=== PATIENT | male | born 1990 | race Two or more races ===

== ENCOUNTER 2023-03-19 13:59 | Outpatient (REF) | payer MEDICAID, SELFPAY ==
[2023-03-19 15:50] LABS: Hematocrit 42.9 % (42.0-52.0); Hemoglobin 13.9 g/dl (14.0-18.0); Mean Corpuscular HGB Conc 32.4 g/dl (31.0-36.0); Mean Corpuscular Hemoglobin 26.9 pg (27.0-33.0); Mean Platelet Volume 9.1 fL (9.4-12.4); Platelet Count 273 X10*3/uL (160-400); Red Blood Count 5.17 X10*6/uL (4.60-5.80); Red Cell Distribution Width 12.4 % (11.0-16.0); White Blood Count 4.3 X10*3/uL (4.8-10.8)
[2023-03-19 16:06] LABS: Alanine Aminotransferase 19 U/L (0-40); Albumin Level 4.3 g/dL (3.5-5.0); Alkaline Phosphatase 64 U/L (39-117); Anion Gap 10 (12-20); Aspartate Amino Transferase 17 U/L (5-37); Bilirubin Total 0.7 mg/dL (0.0-1.0); Blood Urea Nitrogen 11 mg/dL (9-16); C Reactive Protein < 0.10 mg/dL (< or = 0.50); Calcium 9.7 mg/dL (8.4-10.2); Carbon Dioxide 26 mmol/L (22-29); Chloride 110 mmol/L (96-108); Estimated Glomerular Filt Rate > 60; Glucose Random 89 mg/dL (60-115); Iron 74 mcg/dL (45-160); Percent Iron Saturation 25 % (15-50); Potassium 4.1 mmol/L (3.3-5.1); Sodium 142 mmol/L (135-145); Total Iron Binding Capacity 295 mcg/dL (228-428); Unsaturated Iron Binding 221 ug/dL
[2023-03-19 16:28] LABS: Ferritin 51 ng/mL (20-250); Vitamin B12 298 pg/mL (200-900)
[2023-03-20 18:27] LABS: Transglutaminase IgA <1.0 U/mL
== END 2023-03-19 14:00 | disposition home or self-care (01) ==
LOC: HO.LAB 13:59
PROVIDERS: PCP Physician Assistant; Visit Provider Internal Medicine
DX: K21.9 Gastro-esophageal reflux disease without esophagitis (principal); R19.4 Change in bowel habit; R10.13 Epigastric pain; R14.0 Abdominal distension (gaseous)
CPT/HCPCS: 36415; 80053; 82607; 82728; 82746; 83520; 83540; 85027; 86140; 86364; 99202

== ENCOUNTER 2023-03-25 11:23 | Outpatient (REF) | payer MEDICAID, SELFPAY ==
[2023-03-31 18:09] LABS: Calprotectin, Fecal 38 mcg/g
== END 2023-03-25 11:24 | disposition home or self-care (01) ==
LOC: HO.LNP 11:23
PROVIDERS: Visit Provider Internal Medicine
DX: R19.4 Change in bowel habit (principal)
CPT/HCPCS: 83993

== ENCOUNTER 2023-04-23 09:04 | Outpatient (AMB) | payer MEDICAID, SELFPAY ==
--- NOTE | 2023-04-23 09:10 | MHC.OFFVIS ---
Intake Vital Signs 04/23/23 09:11 Height 5 ft 7 in Weight 169 lb 12.095 oz BMI 26.6 BP 128/81 Blood Pressure Location Lt brachial Position Sitting Pulse 80 Intake Visit Reasons: 5 week follow up Intake Note: Saba presents in the office as a 5 week follow up. CC: He states that he is taking the medications and states that he is still having constipation. The only medication that will help if the Xifaxin. He states after eating he gets bloated and feels like he has a belly. He states that he has SIBO. He wants to know a good diet for taking the Xifaxan. Allergies Milk Containing Products (Dairy) Allergy (Mild, Verified 04/23/23 09:11) Unknown fiber pills Allergy (Mild, Uncoded 04/23/23 09:11) Unknown HPI HPI Comments History of Present Illness Details 32 y.o M with PMH of thyroid ca s/p thyroidectomy (Dr Coats) who is here for follow up 03/19/23: - Reports significant bloating and constipation shortly after consuming any dairy. Also describes numbing sensation in the feet with this. Does lactaid [id number] at the time of meals, but does not notice improvement in sx. - Also reports heartburn with certain vegetables lisa onions, tomatoes, garlic etc. Most of the times doesnt respond to esomeprazole. Has been seen by [facility] in the past and has undergone EGD/colonoscopy in 2020 which was normal based on path (procedure report not available). He also reports being treated for SIBO x 2 without significant improvement. 04/23/23: Reports postprandial bloating with discomfort. Also reports significant constipation that is only relieved with Mag supplements. The bloating gets better after having a BM. Concerned about recurrence of SIBO. Per his report was first diagnosed in [place] 3 years ago and then again a year ago at [facility] [place]. Both times had relief of sx with Rifaximin for a few months. [facility] History History of esophagogastroduodenoscopy (EGD) Hx of colonoscopy Family History Maternal Aunt Breast cancer Social History Alcohol intake: never Patient Tobacco Use Status: Former Tobacco user Review of Systems Const All systems reviewed & are unremarkable except as noted in HPI and below Physical Exam Vital Signs: Last Vital Signs Pulse 80 04/23/23 09:11 BP 128/81 04/23/23 09:11 BMI result Body Mass Index 26.6 Gen appear: NAD HEENT: nonicteric, no cervical lymphadenopathy Chest: CTA CVS: Regular S1/S2 Abd: soft, nontender, nondistended, bowel sounds + Ext: no peripheral edema Neuro: A/Ox3, noted to move all extremities spontaneously Psych: interacting appropriately Assessment & Plan Assessment & Plan (1) Change in bowel habit: Code(s): R19.4 - Change in bowel habit (2) Epigastric pain: Code(s): R10.13 - Epigastric pain (3) Bloating: Code(s): R14.0 - Abdominal distension (gaseous) (4) Irritable bowel syndrome with constipation: Code(s): K58.1 - Irritable bowel syndrome with constipation Plan Results from labs reviewed extensively with the pt and negative for inflammation, malabsorption, celiac, mast cell disorder. Sx most consistent with IBS- constipation predominant. 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 With shared decision making, pt willing to try Amitiza, will start with low dose of 8 mcg once daily and increase to 8mcg BID in 4 weeks depending on response. If minimal improvement with this as well, can repeat SIBO breath test. Pt knows to call or msg on portal in 4 weeks to update us. Follow up in 8 weeks. Medications: New lubiprostone (Amitiza) 8 mcg PO DAILY 28 caps 0RF 4 weeks Coding Level of Care Code Est Pt Level 4 (49497) Diagnoses Change in bowel habit R19.4 Epigastric pain R10.13 Bloating R14.0 Irritable bowel syndrome with constipation K58.1
[2023-04-23 09:11] VITALS: BP 128/81; PULSE 80; BMI 26.6
== END 2023-04-23 09:46 | disposition home or self-care (01) ==
PROVIDERS: PCP Physician Assistant; Visit Provider Internal Medicine
DX: R19.4 Change in bowel habit (principal); R10.13 Epigastric pain; R14.0 Abdominal distension (gaseous); K58.1 Irritable bowel syndrome with constipation
CPT/HCPCS: 99214

== ENCOUNTER → 2023-04-23 09:04 | Outpatient (BNVA) | payer MEDICAID, SELFPAY | PROVIDERS: PCP Physician Assistant; Visit Provider Internal Medicine | DX: K58.1 Irritable bowel syndrome with constipation (principal); R14.0 Abdominal distension (gaseous); R10.13 Epigastric pain; R19.4 Change in bowel habit | CPT/HCPCS: 99212 ==